=== PATIENT | male | born 1940 ===

== ENCOUNTER 2016-11-08 06:35 | Day surgery (SDC) | payer MEDICARE, OTHER ==
[2016-10-28 08:10] VITALS: BMI 23.7
[~2016-11-08 06:35] MED LIST: Ciprofloxacin 0.3% OPTH SOLN OS SCH; Cyclopentolate 1% Opth (2 ml) OS SCH; Flurbiprofen 0.03% Opht SOLN OS SCH; Lactated Ringer's 500 ML IV ONE; Tropicamide 1% Opht SOLUTION OS SCH
[2016-11-08] MEDS ORDERED: Phenylephrine 2.5% Opht Soln OS SCH ×2 (07:00→10:00)
[2016-11-08] MEDS ORDERED: Carbachol 0.01% IO ONE (07:32)
[2016-11-08] MEDS ORDERED: Povidone Iodine Ophthalmic 5% Soln ONE (07:32)
[2016-11-08] MEDS ORDERED: Tetracaine 0.5% Ophth (OR ONLY) ONE (07:33)
[2016-11-08] MEDS ORDERED: Hyaluronidase Human, Recombi 150 U/ML VIAL ONE (07:33)
[2016-11-08] MEDS ORDERED: Tobramycin/Dexamethasone (Tobradex) Opth Sol (2.5 ml) ONE (07:33)
[2016-11-08] MEDS ORDERED: Chondroitin/Hyaluronate Opth Syringe KIT (0.55 ml-0.5 ml) IO ONE (07:33)
[2016-11-08] MEDS ORDERED: Lidocaine 2% Inj (20ml) ONE (07:33)
[2016-11-08] MEDS ORDERED: Tobramycin/Dexamethasone OPHT OINT ONE (07:33)
[2016-11-08] MEDS ORDERED: Lidocaine Hydrochloride 5 ML INJ ONE (08:00)
[2016-11-08] MEDS ORDERED: Propofol 10 mg/ml Inj (20 ML) ONE (08:00)
[2016-11-08 09:12] VITALS: O2SAT 99
[2016-11-08 09:44] VITALS: BP 113/66; PULSE 78; RESP 18; TEMP 97.6
--- NOTE | 2016-11-08 21:51 | OP ---
PROCEDURE DATE: 11/08/2016 PREOPERATIVE DIAGNOSIS: CATARACT LEFT EYE. POSTOPERATIVE DIAGNOSIS: CATARACT LEFT EYE. OPERATIVE PROCEDURE: CATARACT EXTRACTION WITH IMPLANT LEFT EYE. ANESTHESIA TYPE: LOCAL, STAND-BY. ANESTHESIOLOGIST: COMPLICATIONS: NONE. PROCEDURE: Local anesthesia was achieved using a mixture of 1% lidocaine and Amphadase. The patient was then prepped and draped in the usual sterile fashion for ophthalmic surgery. Betadin e drops were placed into the eye. A lid speculum was used and a sideport incision was made using a 1 5 degree blade. Viscoelastic was used to fill the anterior chamber and a 2.7 millimeter slit blade w as used to create a surgical opening. Additional viscoelastic was placed into the eye and a capsulor rhexis was performed. Hydrodissection and delineation were then carried out. Phacoemulsification of the nucleus was performed with ease and cortical cleanup was achieved without difficulty. The capsul ar bag was refilled using viscoelastic and a posterior chamber lens was inserted through the existing wound and placed into the capsular bag and easily centered. All viscoelastic was then aspirated from the eye and Miochol was instilled for good symmetric pupilla ry constriction. The sideport wound was hydrated as necessary and a good watertight closure was obse rved at the conclusion of the case. A TobraDex soaked collagen shield was then placed over the eye. The lid speculum was removed. TobraDex ointment was placed onto the eye and a patch and shield were placed. The patient tolerated the procedure well. Freddy Shelton MD cc: [id number] TT: 11/08/2016 21:50:54 keren
== END 2016-11-08 09:39 | disposition home or self-care (01) ==
LOC: C.SDS 06:35
PROVIDERS: ATTEND Ophthalmology
DX: H26.9 Unspecified cataract (principal)
CPT/HCPCS: 66984; 82948; J2704; J3470; J7120; V2632